=== PATIENT | male | born 1985 | race Caucasian/White ===

== ENCOUNTER 2016-12-20 13:44 | Emergency (ER) | payer MEDICAID ==
[2016-12-20 14:05] VITALS: BP 120/82
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
== END 2016-12-20 14:32 | disposition home or self-care (01) ==
LOC: UCCORT 13:44
DX: J20.9 Acute bronchitis, unspecified (principal); F17.210 Nicotine dependence, cigarettes, uncomplicated
CPT/HCPCS: 99212; G0463

== ENCOUNTER 2017-01-10 13:56 | Emergency (ER) | payer MEDICAID ==
[2017-01-10 14:25] VITALS: BP 142/61
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
== END 2017-01-10 14:59 | disposition home or self-care (01) ==
LOC: UCCORT 13:56
DX: J01.90 Acute sinusitis, unspecified (principal)
CPT/HCPCS: 99212; G0463

== ENCOUNTER 2017-05-15 14:18 | Emergency (ER) | payer BC, OTHER ==
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
[2017-05-15 15:23] VITALS: BP 124/80
[2017-05-15] MEDS ORDERED: methylPREDNISolone 125 MG* 2 ML VIAL IM ONE (15:36)
== END 2017-05-15 16:14 | disposition home or self-care (01) ==
LOC: UCCORT 14:18
DX: M54.5 Low back pain (principal); M62.830 Muscle spasm of back; Z72.89 Other problems related to lifestyle; Z72.0 Tobacco use
CPT/HCPCS: 96372; 99212; G0463; J2930

== ENCOUNTER 2019-03-17 19:39 | Emergency (ER) | payer BC ==
[2019-03-17 21:21] VITALS: BP 130/82
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
[2019-03-17] MEDS ORDERED: Lidocaine 1% MPF ** 5 ML VIAL INJ ONE (21:59)
== END 2019-03-17 22:38 | disposition home or self-care (01) ==
LOC: UCCORT 19:39
DX: S01.21XA Laceration without foreign body of nose, initial encounter (principal); F17.210 Nicotine dependence, cigarettes, uncomplicated; W22.8XXA Striking against or struck by other objects, initial encounter; Y92.009 Unspecified place in unspecified non-institutional (private) residence as the place of occurrence of the external cause; Z91.09 Other allergy status, other than to drugs and biological substances
CPT/HCPCS: 12011; 99211; G0463